=== PATIENT | female | born 1960 | race Caucasian/White ===

== ENCOUNTER 2018-09-26 06:05 | Inpatient (IN) | payer OTHER ==
[~2018-09-26] VITALS: Ht 172.7 cm; Wt 125.6 kg
[~2018-09-26 06:05] MED LIST: HYDRA25 PO; Keflex500 MG PO; METF500 PO; NAPR500 PO; Norco 5-325 Ta1 EACH PO
[2018-09-26] MEDS ORDERED: HYDCHL50 PO (06:27)
[2018-09-26 06:56] LABS: BASOPHILS ABSOLUTE AUTO 0.05 K/mm3 (0.00-0.23); BASOPHILS PERCENT AUTO 1 % (0-2); EOSINOPHILS PERCENT AUTO 2 % (0-6); Hematocrit 42.6 % (33.0-51.0); Hemoglobin 13.7 g/dL (11.5-16.0); IMMATURE GRAN ABSOLUTE AUTO 0.01 K/mm3 (0.00-0.10); IMMATURE GRAN PERCENT AUTO 0 % (0-1); LYMPHOCYTES ABSOLUTE AUTO 2.22 K/mm3 (0.84-5.20); LYMPHOCYTES PERCENT AUTO 41 % (21-46); MONOCYTES PERCENT AUTO 7 % (4-13); Mean Corpuscular HGB 30.4 pg (26.0-34.0); Mean Corpuscular HGB Conc 32.2 g/dL (31.5-36.5); Mean Corpuscular Volume 95 fL (80-100); Mean Platelet Volume 12.2 fL (9.1-12.4); NEUTROPHILS ABSOLUTE AUTO 2.63 K/mm3 (1.96-9.15); NEUTROPHILS PERCENT AUTO 49 % (41-73); Platelet Count 160 K/mm3 (150-400); RDW Coefficient Variation 13.2 % (11.7-14.2); RDW Standard Deviation 46.4 fL (35.1-46.3); Red Blood Cell Count 4.51 M/mm3 (3.80-5.20); White Blood Cell Count 5.41 K/mm3 (4.00-11.30)
[2018-09-26 07:14] LABS: Alanine Aminotransfer (ALT/SGP 34 U/L (12-78); Albumin, Blood 3.3 g/dL (3.4-5.0); Alk Phos 61 U/L (50-136); Anion Gap 5 mmol/L (6-16); Aspartate Aminotrans (AST/SGOT 22 U/L (12-37); Bilirubin, Total 0.3 mg/dL (0.1-1.0); Blood Urea Nitrogen 17 mg/dL (8-24); Bun/Creatinine Ratio 33.7 (12.0-20.0); CO2, Blood 27 mmol/L (21-32); Calcium, Blood 8.8 mg/dL (8.5-10.1); Chloride, Blood 110 mmol/L (98-108); Globulin, Blood 3.3 g/dL (2.2-4.0); Glomerular Filtration Rate >60 (60-); Glucose, Blood 126 mg/dL (70-99); Potassium, Blood 4.3 mmol/L (3.5-5.5); Sodium, Blood 142 mmol/L (136-145); Total Protein, Blood 6.6 g/dL (6.4-8.2); Troponin I 0.045 ng/mL (0.000-0.040)
--- NOTE | 2018-09-26 13:13 | NUR ---
RECIEVED TELEPHONE REPORT FROM ED RN OSVALDO. PER REPORT PT HAS HAD NO ADDITIONAL CHEST PAIN SINCE 0700 THIS MORNING. PT ALERT AND ORIENTED AND INDEPENDENT IN THE ROOM. PT AWAITING A [place] STRESS TEST WAS FED LUNCH IN THE ED. NO C/O PAIN. PER ED MD PT Hx SIGNIFICANT FOR ANXIETY AND HTN. WAITING FOR PT TO ARRIVE ON MEDICAL FLOOR.
[2018-09-26 14:54] LABS: Creatine Kinase MB 11.1 ng/mL (0.0-3.6); Creatine Kinase MB Index 3.5 (0.0-4.0)
--- NOTE | 2018-09-26 15:00 | NUR ---
CRITICAL VALUE NOTIFICATION AT 1500. RECIEVED A CALL FROM KRISTINA IN THE LAB PT TROPONIN UP FROM 0.[address] TO [phone] FAJARDO IN PERSON MOMENTS LATER SHE IS AWARE. NO NEW ORDERS AT THIS TIME. PT DENIES ANY CHEST DISCOMFORT AT THIS TIME AND IS RUNNING NSR AT 72 ON TELE. WILL CTM. PT ALERT AND ORIENTED, CALL LIGHT USE HAS BEEN EXPLAINED.
[2018-09-26 15:02] LABS: Troponin I 0.557 ng/mL (0.000-0.040)
[2018-09-26] MEDS ORDERED: HYDCHL12.5 PO (15:40)
[2018-09-26 16:04] LABS: International Normalized Ratio 0.94
--- NOTE | 2018-09-26 18:40 | NUR ---
SHIFT SUMMARY- PT HAD A CRITICAL TROPONIN, CARDIOLOGY CAME TO SEE THE PT. PT HAS HAD NO C/O CP SINCE ARRIVAL ON MEDICAL FLOOR. DENIES N/T NO N/V SINCE ADMIT. HEPARIN DRIP STARTED. PLAVIX GIVEN. PT HAD HER DAUGHTER AT THE BEDSIDE UNTIL A FEW MINUTES AGO. [place] VISITING HER DAUGHTER. PT IS FRIGHTENED AND EMOTIONAL ABOUT HER MEDICAL ISSUE. STAFF HAVE PROVIDED SUPPORT AND EDUCATION WHENEVER POSSIBLE. PT IS CURRENTLY IN [facility]. HEPARIN DRIP IS RUNNING INTO RIGHT HAND IV. CALL LIGHT IN REACH, PT ALERT AND ORIENTED AND INDEPENDENT. WILL PASS ON IN BEDSIDE REPORT.
[2018-09-26 22:33] LABS: Creatine Kinase MB 9.9 ng/mL (0.0-3.6); Creatine Kinase MB Index 3.7 (0.0-4.0)
[2018-09-26 22:38] LABS: Troponin I 0.939 ng/mL (0.000-0.040)
--- NOTE | 2018-09-27 04:50 | NUR ---
SHIFT SUMMARY PT HAD A INCREASED TROPIN. PT WAS TX PER ORDERS WITH HEPRIN PER EMAR. PT ALSO HAD HEADACHE AND TYLENOL WAS ORDERED. PT HAS BEEN SLEEPING WELL. PT CURRENTLY AWAKE WITH NO COMPLAINTS. CALL LIGHT IN REACH.
[2018-09-27 05:20] LABS: BASOPHILS ABSOLUTE AUTO 0.06 K/mm3 (0.00-0.23); BASOPHILS PERCENT AUTO 1 % (0-2); EOSINOPHILS ABSOLUTE AUTO 0.09 K/mm3 (0.00-0.68); EOSINOPHILS PERCENT AUTO 2 % (0-6); Hematocrit 42.9 % (33.0-51.0); Hemoglobin 13.6 g/dL (11.5-16.0); IMMATURE GRAN ABSOLUTE AUTO 0.02 K/mm3 (0.00-0.10); IMMATURE GRAN PERCENT AUTO 0 % (0-1); LYMPHOCYTES ABSOLUTE AUTO 2.26 K/mm3 (0.84-5.20); LYMPHOCYTES PERCENT AUTO 43 % (21-46); MONOCYTES ABSOLUTE AUTO 0.41 K/mm3 (0.16-1.47); MONOCYTES PERCENT AUTO 8 % (4-13); Mean Corpuscular HGB 29.9 pg (26.0-34.0); Mean Corpuscular HGB Conc 31.7 g/dL (31.5-36.5); Mean Corpuscular Volume 94 fL (80-100); Mean Platelet Volume 11.8 fL (9.1-12.4); NEUTROPHILS ABSOLUTE AUTO 2.43 K/mm3 (1.96-9.15); NEUTROPHILS PERCENT AUTO 46 % (41-73); Platelet Count 168 K/mm3 (150-400); RDW Coefficient Variation 13.2 % (11.7-14.2); RDW Standard Deviation 46.5 fL (35.1-46.3); Red Blood Cell Count 4.55 M/mm3 (3.80-5.20); White Blood Cell Count 5.27 K/mm3 (4.00-11.30)
[2018-09-27 05:37] LABS: Alanine Aminotransfer (ALT/SGP 34 U/L (12-78); Albumin, Blood 3.3 g/dL (3.4-5.0); Alk Phos 59 U/L (50-136); Anion Gap 3 mmol/L (6-16); Aspartate Aminotrans (AST/SGOT 18 U/L (12-37); Bilirubin, Total 0.3 mg/dL (0.1-1.0); Blood Urea Nitrogen 13 mg/dL (8-24); Bun/Creatinine Ratio 24.1 (12.0-20.0); CHOL/HDL RATIO 3.1; CO2, Blood 31 mmol/L (21-32); Chloride, Blood 107 mmol/L (98-108); Cholesterol 185 mg/dL (50-200); Creatinine, Blood 0.54 mg/dL (0.40-1.00); Globulin, Blood 3.4 g/dL (2.2-4.0); Glomerular Filtration Rate >60 (60-); Glucose, Blood 109 mg/dL (70-99); HDL Cholesterol 60 mg/dL (>39); LDL/HDL RATIO 1.7; Low Density Lipoprotein Chol 99 mg/dL (0-110); Potassium, Blood 4.3 mmol/L (3.5-5.5); Sodium, Blood 141 mmol/L (136-145); Total Protein, Blood 6.7 g/dL (6.4-8.2); Triglycerides 130 mg/dL (30-160); Very Low Density Lipoprot Chol 26 mg/dL (6-32)
--- NOTE | 2018-09-27 10:36 | NUR ---
Patient is lying in bed and alert. Patient shares with me about her trip to [place] from [facility] and the circumstances (including the family unit complications) that brought her here. Patient gets tearful when talking about being away from most of her family and yet speaks of great parrish when discussing her connection with God. I listened empathically and provided prayer. Patient got very tearful again when I prayed. Patient was very grateful for my visit and showed signs of an elevated mood.
--- NOTE | 2018-09-27 12:19 | NUR ---
TELE CALLED- PT HR BONIFACIO 38-42 FOR 2 MINUTES. VITALS WNL, ONCE PT WOKE HR CAME UP TO SINUS BONIFACIO IN THE 50'S. CALLED DR GASPAR, PT WAS A LITTLE UNCERTAIN WITH THIS MORNINGS COMMUNICATION, SHE IS WILLING TO DO THE CARDIAC CATH IF NEEDED. DR GASPAR AWARE. ORDER RECIEVED TO DC BETA TARA AND GO AHEAD WITH THE STRESS TEST.
--- NOTE | 2018-09-27 16:39 | NUR ---
SHIFT SUMMARY- PT HEPARIN DRIP IS STILL INFUSING AT A RATE OF 16U/KG/HR WITH A DOSE WEIGHT OF 88KG. PT ALERT AND ORIENTED AND INDEPENDENT IN THE ROOM 3RD TROPONIN VALUE WAS 0.9, DR AWARE. CARDIOLOGY IS AWARE STAT ECHO COMPLETED PER DR GASPAR (CARDIOLOGY) PT OK TO COMPLETE CARDIAC STRESS TEST, PASSED THIS ONM TO DR FAJARDO AND STRESS TEST WAS REORDERED, FIRST PART OF THE STRESS TEST WAS COMPLETED THIS EVENING. PT NPO WITH WATER PRIVLAGES AFTER MIDNIGHT, NO CAFFIENE AFTER 8PM TONIGHT. PT HAS HAD NO C/O CHEST PAIN OR N/V. PT IS STILL VERY EMOTIONAL AND FEARFUL. DENIES ANY N/T AT THIS TIME. WILL CTM AND PASS ON TO NIGHT RN IN REPORT.
--- NOTE | 2018-09-27 18:34 | NUR ---
SPOKE TO KEENAN IN PHARMACY ABOUT PT PTT RESULT OF 29. NEW STAT LAB ORDERED DRAWN AT 1757 RESULT STILL PENDING AT THIS TIME. CALLED LAB TO CONFIRM IT IS RUNNING.
--- NOTE | 2018-09-28 00:28 | NUR ---
PT COMPLAINING OF BACK PAIN THAT SHE REPORTS STARTED IN L ARM AND MOVED TO MID UPPER BACK. PT HIGHLY ANXIOUS THIS EVENING AND CONVINCED THAT BACK PAIN IS CARDIAC RELATED. SPOKE WITH DAR ARAUJO, NEW ORDER TO GIVE 2 MG MORPHINE. MORPHINE GIVEN. PT REPORTS MINOR RELIEF. CALLED [facility] HOSPITALIST AGAIN. NEW ORDER FOR EKG. EKG DONE WITH NO CHANGES FROM PREVIOUS EKG. PT RESTING MORE COMFORTABLY AT THIS TIME. REPORTS PAIN TOLERABLE. HEATING PAD PROVIDED FOR BACK. TELEMETRY UNCHANGED THROUGHOUT NIGHT, SR 60'S. WILL CONTINUE TO MONITOR.
--- NOTE | 2018-09-28 04:38 | NUR ---
SHIFT SUMMARY PT HAD DIFFICULT NIGHT. VERY ANXIOUS AND EMOTIONAL. PT REPORTING BACK PAIN DUE TO PT REMAINING IN BED MORE THAN USUAL. PT VERY CONCERNED PAIN WAS CARDIAC RELATED. SEE NOTE. AFTER APPROX 0100 PT SLEPT WELL THE REMAINDER OF THE EVENING. HEPARIN DRIP RUNNING, NO CHANGE IN DOSING THIS EVENING. PT NPO SINCE MIDNIGHT FOR SECOND PART OF STRESS TEST TODAY. NO CAFFEINE THIS EVENING. TELEMETRY SR IN THE 60'S. NO EVENTS OF TELEMETRY. VITAL SIGNS STABLE. NO OTHER ACUTE CHANGES THIS SHIFT. WILL CONTINUE TO MONITOR AND REPORT TO DAY RN.
[2018-09-28 05:37] LABS: Hematocrit 45.1 % (33.0-51.0); Hemoglobin 14.3 g/dL (11.5-16.0); Mean Corpuscular HGB 30.4 pg (26.0-34.0); Mean Corpuscular HGB Conc 31.7 g/dL (31.5-36.5); Mean Corpuscular Volume 96 fL (80-100); Mean Platelet Volume 11.9 fL (9.1-12.4); Platelet Count 158 K/mm3 (150-400); RDW Coefficient Variation 12.9 % (11.7-14.2); RDW Standard Deviation 46.1 fL (35.1-46.3); Red Blood Cell Count 4.71 M/mm3 (3.80-5.20); White Blood Cell Count 7.06 K/mm3 (4.00-11.30)
[2018-09-28 06:01] LABS: Albumin, Blood 3.4 g/dL (3.4-5.0); Anion Gap 5 mmol/L (6-16); Blood Urea Nitrogen 16 mg/dL (8-24); CO2, Blood 29 mmol/L (21-32); Calcium, Blood 9.3 mg/dL (8.5-10.1); Chloride, Blood 105 mmol/L (98-108); Creatinine, Blood 0.55 mg/dL (0.40-1.00); Glomerular Filtration Rate >60 (60-); Glucose, Blood 110 mg/dL (70-99); Phosphorus, Blood 3.5 mg/dL (2.5-4.9); Potassium, Blood 4.4 mmol/L (3.5-5.5); Sodium, Blood 139 mmol/L (136-145)
--- NOTE | 2018-09-28 16:31 | NUR ---
PATIENT A/OX4, UP INDEPENDENTLY IN ROOM. PATIENT VERY ANXIOUS AND TEARFUL AT TIMES, XANAX ORDERED TO TREAT WITH GOOD RESULTS. PATIENT HAD A STRESS TEST TODAY THAT WAS NEGATIVE. PLAN IS TO GO FOR AN ANGIOGRAM SUNDAY. HEPARIN GTT CONTINUES, NO RATE CHANGE THIS SHIFT. NEXT PTT AT 2100. TOLERATING CARDIAC DIET. PATIENT LIVES IN [place] AND IS HERE VISITING HER DAUGHTER. LUNGS ARE CLEAR, ON RA. SKIN INTACT. CALL APPROPRIATELY FOR ASSISTANCE.
--- NOTE | 2018-09-29 04:41 | NUR ---
SHIFT SUMMARY PT HAD MUCH BETTER EVENING THAN YESTERDAY EVENING. NO COMPLAINTS OF ANY PAIN OR DISCOMFORT. MEDICATED X 1 W/ 0.25 MG XANAX. PT MUCH LESS ANXIOUS. NOT TEARFUL AT ALL THIS EVENING. HEPARIN DRIP ADJUSTED TO 22 U/KG/HR OR 38.7 ML/HR FOR APTT OF 44.1. PT GRATEFUL TO BE HAVING ANGIOGRAM EITHER TODAY OR TOMORROW BEFORE SHE HEADS BACK TO HER HOME IN [facility]. PT CONTINUES TO AMBULATE AND VOID WELL. VITAL SIGNS STABLE. TELEMETRY READING SINUS RHYTHM IN THE 60'S. WILL CONTINUE TO MONITOR AND REPORT TO DAY RN.
--- NOTE | 2018-09-29 18:16 | NUR ---
NO ACUTE CHANGES THIS SHIFT. PATIENT CONTINUES ON HEPARIN GTT. DENIES ANY CHEST PAIN THIS SHIFT. XANAX GIVEN X1 TO TREAT ANXIETY. PLAN IS FOR AN ANGIOGRAM IN AM. SR ON TELE, VSS THIS SHIFT. LUNGS CLEAR, ON RA. A/OX4 UP INDPENDENTLY IN ROOM. 20G IV TO R HAND WNL. CALM AND COOPERATIVE WITH CARE, USES CALL LIGHT APPROPRIATELY FOR ASSISTANCE
[2018-09-30 04:42] LABS: Mean Platelet Volume 11.8 fL (9.1-12.4); Platelet Count 181 K/mm3 (150-400)
--- NOTE | 2018-09-30 05:52 | NUR ---
SHIFT SUMMARY NO ACUTE CHANGES. NO CHEST PAIN OR DISCOMFORT THIS EVENING. PER MD NOTE PT EXPECTED TO GO TO ECHOCARDIOGRAPHY RADIOLOGY TECHNOLOGIST TODAY FOR ANGIOGRAM. NO ORDERS AT THIS TIME. PT REMAINED NPO AND WITHOUT CAFFIENE TO ENSURE ANGIOGRAM COULD BE DONE TODAY. HEPARIN DRIP CONTINUES TO RUN, NO CHANGE IN RATE THIS EVENING. ONE DOSE OF XANAX GIVEN BEFORE BED. PT REMAINED CALM AND SLEPT WELL THROUGH MOST OF THE NIGHT. VSS. TELEMETRY READ SR IN THE 60'S ALL NIGHT. WILL CONTINUE TO MONITOR.
--- NOTE | 2018-09-30 07:10 | NUR ---
ASSUMED CARE OF PT- BEDSIDE REPORT COMPLETED WITH NIGHT LAWRENCE ULRICH. PT STILL ON HEPARIN DRIP AT 22U/KG/HR. CONFIRMED WITH JOANNA BAHENA. PT IV INFUSING IN THE RIGHT HAND. PT ALERT AND ORIENTED AND PARTICIPATED IN REPORT. PT RECIEVED XANAX LAST NIGHT FOR ANXIETY SEEMS VERY CALM THIS MORNING. DENIES PAIN AND N/V WELL N/T. RESP E/U ON ROOM AIR SATS 93% ON MORNING VITALS. PT NSR AT 60 PER DIRECT SALES CONSULTANT. PLAN IS FOR PT TO GO TO THE SYSTEMS DEVELOPER AT 0830. PT HAS BEEN NPO SINCE MIDNIGHT.
--- NOTE | 2018-09-30 08:30 | NUR ---
PT TAKEN TO GAS LEAK INSPECTOR- REPORT GIVEN TO GAS LEAK INSPECTOR RN LAURA. PT HAS NOT YET RECIEVED MORNING MEDICATIONS, SBP 119 AND HR 60. PT BECAME TEARFUL WHEN SHE LEFT FOR THE GAS LEAK INSPECTOR, WILL CALL REPORT TO RETAIL LOSS PREVENTION INVESTIGATOR FOR ROOM PCU2, SHORTLY.
--- NOTE | 2018-09-30 09:45 | NUR ---
PT ARRIVED TO RECOVERY ROOM IN RECLINER AT 0930, B/P 78/44, MONITOR SRT 60'S. PT REPORTED FEELING NAUSEATED AND WARM, REPEAT B/P 83/45 AT 0932 SYMPTOMS RESOLVED. TR BAND TO R RADIAL SITE WITHOUT SWELLING OR HEMATOMA. PT SITTING UP VISITING AND DRINKING COFFEE.
--- NOTE | 2018-09-30 09:46 | NUR ---
CALLED REPORT TO AUTOMOBILE TECHNICIAN- FULL REPORT GIVEN NO QUESTIONS AT THE COMPLETION OF REPORT. WILL CALL IF QUESTIONS ARRISE, AWARE MORNING MEDS NOT GIVEN BEFORE PT LEFT FOR THE FLOW WORKER.
--- NOTE | 2018-09-30 10:45 | NUR ---
1045 PT RECEIVED FROM [facility] [place]. RIGHT WRIST SOFT, NO BLEED OR HEMATOMA, TR BAND CDI, ARMBOARD IN PLACE. SITTING UP IN CHAIR. VSS. DENIES PAIN OR NEEDS AT THIS TIME.
--- NOTE | 2018-09-30 15:10 | NUR ---
PT RESTING IN CHAIR TODAY. ALL AIR REMOVED FROM TR BAND PER PROTOCOL. RIGHT WRIST SOFT, NO BLEED OR HEMATOMA, TR BAND CDI, ARMBOARD IN PLACE. WILL CONTINUE TO MONITOR.
--- NOTE | 2018-09-30 15:26 | NUR ---
Patient is sitting on a chair and alert. Patient shared about her angiogram, her upcoming discharge and the lessons she has learned from her medical events. Patient is extremely complementary of the doctors and hospital staff that have been involved in her care. Patient has learned about the importance of de-stressing her life, about being grateful for the people that surround her and about tamiko and trust. Patient is tearful when dicussing how blessed she is. I reinforce these helpful attitudes and insights, provide companionship and prayer. Patient responds well and voices appreciation for the care and time from the spiritual care department.
--- NOTE | 2018-09-30 16:20 | NUR ---
RIGHT WRIST STABLE. TR BAND REMOVED. RIGHT WRIST SOFT, NO BLEED OR HEMATOMA, OPSITE DRSG APPLIED.
[2018-09-30] MEDS ORDERED: ALPR.25 PO (16:37)
[2018-09-30] MEDS ORDERED: ASPI325 PO (16:38)
[2018-09-30] MEDS ORDERED: ATOR80 PO (16:38)
[2018-09-30] MEDS ORDERED: METO50ER PO (16:41)
[2018-09-30] MEDS ORDERED: Nitrostat0.4 MG SL (16:42)
[2018-09-30] MEDS ORDERED: POTA10T PO (16:42)
--- NOTE | 2018-09-30 17:14 | NUR ---
DISCHARGE NOTE PT STABLE FOR DISCHARGE. IV REMOVED. DISCHARGE INSTRUCTIONS, POST ANGIOGRAM INSTRUCTIONS AND DISCHARGE MEDICATIONS REVIEWED WITH PT. PT VERBALIZES UNDERSTANDING AND DENIES QUESTIONS. PT DISCHARGED VIA WHEELCHAIR TO WAITING CAR WITH BELONGINGS.
== END 2018-09-30 17:35 | disposition home or self-care (01) | DRG 281 ==
LOC: ER 06:05 → MEDS 06:06 → ERHOLD 06:06 → ER 07:37 → MEDS 13:35 → PCU 09-30 10:09
PROVIDERS: Emergency Medicine; ADMIT Internal Medicine
PROC: 4A023N7 Measurement of Cardiac Sampling and Pressure, Left Heart, Percutaneous Approach (ICD-10-PCS; principal; 2018-09-30)
PROC: B210YZZ Fluoroscopy of Single Coronary Artery using Other Contrast (ICD-10-PCS; 2018-09-30)
DX: I21.4 Non-ST elevation (NSTEMI) myocardial infarction (principal); Z68.41 Body mass index [BMI] 40.0-44.9, adult; I10 Essential (primary) hypertension; I25.82 Chronic total occlusion of coronary artery; E78.5 Hyperlipidemia, unspecified; F41.9 Anxiety disorder, unspecified; E66.01 Morbid (severe) obesity due to excess calories; E11.9 Type 2 diabetes mellitus without complications; I24.9 Acute ischemic heart disease, unspecified
CPT/HCPCS: 36415; 71046; 78452; 80053; 80061; 80069; 82550; 82553; 83036; 84484; 85025; 85027; 85049; 85610; 85730; 93005; 93010; 93017; 93306; 93454; 96374; 96375; 96376; 99152; 99153; 99285-25; A9270; A9500; C1769; C1894; G0378; J0706; J1644; J1650; J2250; J2270; J2785; J3010; J7030; Q9967